=== PATIENT | female | born 1990 | race Caucasian/White ===

== ENCOUNTER → 2019-08-11 | Outpatient (CLI) | payer OTHER ==
--- NOTE | 2019-08-11 10:26 | US ---
EXAMINATION TYPE: US pelvic complete DATE OF EXAM: 08/11/2019 COMPARISON: US 04/19/2015 CLINICAL HISTORY: E28.2 POLYCYSTIC OVARIES. TECHNIQUE: . Transabdominal sonographic images of the pelvis were acquired. Date of LMP: 2 weeks ago EXAM MEASUREMENTS: Uterus: 7.1 x 3.1 x 3.2 cm Endometrial Stripe: 0.8 cm Right Ovary: 3.6 x 2.5 x 2.6 cm Left Ovary: 2.2 x 1.6 x 1.8 cm 1. Uterus: Anteverted wnl 2. Endometrium: wnl 3. Right Ovary: Follicles visualized, wnl 4. Left Ovary: Follicles visualized, wnl 5. Bilateral Adnexa: wnl 6. Posterior cul-de-sac: wnl IMPRESSION: Normal pelvic ultrasound
--- NOTE | 2019-08-11 10:27 | US ---
EXAMINATION TYPE: US abdomen complete DATE OF EXAM: 08/11/2019 COMPARISON: NONE CLINICAL HISTORY: E28.2 POLYCYSTIC OVARIES. EXAM MEASUREMENTS: Liver Length: 13.9 cm Gallbladder Wall: 0.1 cm CBD: 0.5 cm Spleen: 11.6 cm Right Kidney: 10.9 x 4.9 x 4.8 cm Left Kidney: 9.5 x 4.9 x 5.4 cm Pancreas: Obscured by bowel gas Liver: wnl Gallbladder: wnl Evidence for sonographic Thayer's sign: No CBD: wnl Spleen: wnl Right Kidney: No hydronephrosis or masses seen Left Kidney: No hydronephrosis or masses seen Upper IVC: wnl Abd Aorta: wnl The liver is homogenous. The intrahepatic portion of the IVC and proximal abdominal aorta are within normal limits. There is no evidence of cholelithiasis. Common bile duct is unremarkable. The visu alized portions of the pancreas are homogenous. The spleen is unremarkable. Kidneys are symmetric a nd free of hydronephrosis, there is no abnormal calcification, cortical medullary differentiation is maintained. No renal lesions are seen. IMPRESSION: Normal abdomen ultrasound
== END | disposition home or self-care (01) ==
LOC: RADUSMAIN 07:45
PROVIDERS: ATTEND Family Medicine
DX: E28.2 Polycystic ovarian syndrome (principal)
CPT/HCPCS: 76700; 76856

== ENCOUNTER 2020-04-27 | Emergency (ER) | payer OTHER ==
[2020-04-27 00:06] VITALS: RESP 20
[2020-04-27] MEDS ORDERED: SODIUM CHLORIDE 0.9% 1,000 ML IV STA (00:22)
[2020-04-27] MEDS ORDERED: METOCLOPRAMIDE 5 MG/ML 2 ML VIAL IVP STA (00:22)
[2020-04-27] MEDS ORDERED: ONDANSETRON 4 MG/2 ML VIAL IVP STA (00:22)
[2020-04-27] MEDS ORDERED: KETOROLAC 15 MG/ML 1 ML VIAL IVP STA (00:27)
--- NOTE | 2020-04-27 00:45 | ED ---
General Adult HPI - General Chief complaint: Headache Stated complaint: Migraine Time Seen by Provider: 04/27/20 00:08 Source: patient Mode of arrival: ambulatory Limitations: no limitations - History of Present Illness Initial comments: 30-year-old female with history of chronic migraines presents to the emergency department with complaints of headache that has persisted throughout the day despite taking all her prescribed medications. Reports discomfort is accompanied by nausea, as well as sensitivity to light and sound. States her current symptoms are similar in nature to her normal migraines but has been unable to get relief with home regimen. Also states she has symptoms of a UTI for which she has been seen by her primary care provider and is content to wait until her follow-up appointment on Wednesday for further evaluation and treatment of the symptoms. Patient denies any recent rash, fever, chills, cough, shortness of breath, chest pain, abdominal pain, vomiting, diarrhea, constipation, back pain, numbness, tingling, dizziness, weakness, hematuria, dysuria, visual changes, or any other complaints. - Related Data Home Medications Medication Instructions Recorded Confirmed Beclomethasone Dipropionate [Qvar 1 puff INHALATION BID 08/20/14 08/20/14 80 mcg/puff] Previous Rx's Medication Instructions Recorded Albuterol Nebulized [Ventolin 2.5 mg INHALATION Q4H PRN 10 Days 08/20/14 Nebulized] nebu Azithromycin [Zithromax Z-pack (6 0 mg PO DIRECTED #6 tab 08/20/14 tabs)] predniSONE [Deltasone] 20 mg PO DIRECTED #11 tab 08/20/14 Allergies Allergy/AdvReac Type Severity Reaction Status Date / Time peanut Allergy Anaphylaxis Verified 04/27/20 00:06 Review of Systems ROS Statement: Those systems with pertinent positive or pertinent negative responses have been documented in the HPI. ROS Other: All systems not noted in ROS Statement are negative. Past Medical History Past Medical History: Asthma Additional Past Medical History / Comment(s): migraines ,PCOS History of Any Multi-Drug Resistant Organisms: None Reported Additional Past Surgical History / Comment(s): nasal surgery Past Psychological History: Depression Smoking Status: Never smoker Past Alcohol Use History: Occasional Past Drug Use History: None Reported General Exam Limitations: no limitations (Well-developed, well-nourished female in no acute distress. Initial temperature 98.9F, pulse 98, respirations 20, blood pressure 125/79, pulse ox 100% on room air.) General appearance: alert, in no apparent distress Head exam: Present: atraumatic, normocephalic, normal inspection Eye exam: Present: normal appearance, PERRL, EOMI. Absent: scleral icterus, conjunctival injection, nystagmus, periorbital swelling Respiratory exam: Present: normal lung sounds bilaterally. Absent: respiratory distress, wheezes, rales, rhonchi, stridor Cardiovascular Exam: Present: regular rate, normal rhythm, normal heart sounds. Absent: systolic murmur, diastolic murmur, rubs, gallop, clicks GI/Abdominal exam: Present: soft, normal bowel sounds. Absent: distended, tenderness, guarding, rebound, rigid Neurological exam: Present: alert, oriented X3, CN II-XII intact Expanded Speech: Present: fluid speech Cranial nerves: EOM's Intact: Normal, Nystagmus: Normal Motor strength exam: RUE: 5, LUE: 5, RLE: 5, LLE: 5 Eye Response: (4) open spontaneously Motor Response: (6) obeys commands Verbal Response: (5) oriented Vadim Total: 15 Psychiatric exam: Present: normal affect Skin exam: Present: warm, dry, intact, normal color. Absent: rash Course Vital Signs 04/27/20 04/27/20 00:04 01:06 Temperature 98.9 F 98.8 F Pulse Rate 98 88 Respiratory 20 20 Rate Blood Pressure 125/79 120/74 O2 Sat by Pulse 100 98 Oximetry Medical Decision Making - Medical Decision Making 30-year-old female patient presents to the emergency department today for evaluation of migraine headache. Patient is have a history of migraines in her symptoms are consistent with her usual migraine pattern. She did take Topamax, Imitrex, and Excedrin today without relief. Physical examination is unremarkable. She is neurologically intact with no focal deficits. She was given IV fluids, IV medications. Upon reevaluation states she is feeling much better. She does feel comfortable being discharged home at this time. She is instructed to follow-up with her primary care physician for recheck in 1-2 days. Return parameters were discussed in detail. She verbalizes understanding and agrees with this plan. Disposition Clinical Impression: Migraine headache Disposition: HOME SELF-CARE Condition: Good Instructions (If sedation given, give patient instructions): Migraine Headache (ED) Additional Instructions: Rest. Increase fluids. Follow up with her primary care physician for recheck in 1-2 days. Return to the emergency department immediately for any new, wor sening, or concerning symptoms. Is patient prescribed a controlled substance at d/c from ED?: No Referrals: Ricardo Ruiz Jr, [Primary Care Provider] - 1-2 days Time of Disposition: 01:19
[2020-04-27 01:11] VITALS: BP 120/74; PULSE 88; TEMP 98.8
== END 2020-04-27 01:26 | disposition home or self-care (01) ==
LOC: EC
DX: G43.909 Migraine, unspecified, not intractable, without status migrainosus (principal); J45.909 Unspecified asthma, uncomplicated; Z79.51 Long term (current) use of inhaled steroids; Z91.010 Allergy to peanuts
CPT/HCPCS: 99283; 96374; 96375 ×2; 96361; J2765; J2405; J1885

== ENCOUNTER → 2020-08-21 | Outpatient (CLI) | payer OTHER ==
--- NOTE | 2020-08-21 16:05 | US ---
EXAMINATION TYPE: US transvaginal DATE OF EXAM: 08/21/2020 COMPARISON: NONE CLINICAL HISTORY: 30-year-old female E28.2 POS R10.32 LLQ pain. PCOS, left pelvic pain TECHNIQUE: Transvaginal (TV) Date of LMP: 08/10/20 FINDINGS: EXAM MEASUREMENTS: Uterus: 6.2 x 2.9 x 3.0 cm Endometrial Stripe: 0.2 cm Right Ovary: 3.3 x 2.3 x 3.0 cm for a volume of 12.2 mL Left Ovary: 2.9 x 2.0 x 2.3 cm for a volume of 6.8 mL. 1. Uterus: Anteverted and otherwise wnl 2. Endometrium: wnl 3. Right Ovary: dominant follicle = 2.0 x 2.1 x 2.1cm 4. Left Ovary: dominant follicle = 1.7 x 1.6 x 1.5cm 5. Bilateral Adnexa: appears wnl 6. Posterior cul-de-sac: wnl IMPRESSION: Ovarian volumes as above. There is a dominant follicle on either side measuring 2.1 cm on the right a nd 1.7 cm on the left. The overall morphology of the ovaries is not typical of polycystic ovaries. Cl inically correlate.
== END ==
LOC: RADUSWWP 13:34
PROVIDERS: ATTEND Family Medicine
DX: R10.2 Pelvic and perineal pain (principal)
CPT/HCPCS: 76830

== ENCOUNTER 2021-02-03 06:14 | Emergency (ER) | payer OTHER ==
[2021-02-03 06:21] VITALS: BP 141/94; PULSE 97; RESP 22; TEMP 98.2
[2021-02-03] MEDS ORDERED: FLUORESCEIN STRIPS 1 MG STRIP RIGHT EYE ONE (06:25)
[2021-02-03] MEDS ORDERED: PROPARACAINE 0.5% OPHTH DROPS 15 ML BTL RIGHT EYE STA (06:25)
--- NOTE | 2021-02-03 06:40 | ED ---
General Adult HPI - General Chief complaint: ENT Stated complaint: eye problem Time Seen by Provider: 02/03/21 06:18 Source: patient, RN notes reviewed Mode of arrival: ambulatory Limitations: no limitations - History of Present Illness Initial comments: This a 30-year-old female presents emergency Department chief complaint of right eye pain. Patient states that it woke her up states that worsened this morning. Patient states she has no visual changes from states he feels that there something her right eye. She denies any contacts lenses when she does wear glasses. Patient states she does not remember getting anything in her right eye. Patient states that is better when she closes and doesn't move it. - Related Data Home Medications Medication Instructions Recorded Confirmed Beclomethasone Dipropionate [Qvar 1 puff INHALATION BID 08/20/14 08/20/14 80 mcg/puff] Previous Rx's Medication Instructions Recorded Albuterol Nebulized [Ventolin 2.5 mg INHALATION Q4H PRN 10 Days 08/20/14 Nebulized] nebu Azithromycin [Zithromax Z-pack (6 0 mg PO DIRECTED #6 tab 08/20/14 tabs)] predniSONE [Deltasone] 20 mg PO DIRECTED #11 tab 08/20/14 Allergies Allergy/AdvReac Type Severity Reaction Status Date / Time peanut Allergy Anaphylaxis Verified 02/03/21 06:21 Review of Systems ROS Statement: Those systems with pertinent positive or pertinent negative responses have been documented in the HPI. ROS Other: All systems not noted in ROS Statement are negative. Past Medical History Past Medical History: Asthma Additional Past Medical History / Comment(s): migraines ,PCOS History of Any Multi-Drug Resistant Organisms: None Reported Additional Past Surgical History / Comment(s): nasal surgery Past Psychological History: Anxiety, Depression Smoking Status: Former smoker Past Alcohol Use History: Occasional Past Drug Use History: None Reported General Exam Limitations: no limitations General appearance: alert, in no apparent distress Head exam: Present: atraumatic, normocephalic, normal inspection Eye exam: Present: PERRL, EOMI, conjunctival injection (Mild right), other (Patient relief with proparacaine eyedrops. There is uptake in a stopped position with fluorescein Wood's lamp. No foreign body noted.). Absent: normal appearance, scleral icterus, periorbital swelling ENT exam: Present: normal exam, normal oropharynx, mucous membranes moist, TM's normal bilaterally Neck exam: Present: normal inspection, full ROM. Absent: tenderness, meningismus, lymphadenopathy Respiratory exam: Present: normal lung sounds bilaterally. Absent: respiratory distress, wheezes, rales, rhonchi, stridor Cardiovascular Exam: Present: regular rate, normal rhythm, normal heart sounds. Absent: systolic murmur, diastolic murmur, rubs, gallop, clicks Course Vital Signs 02/03/21 06:16 Temperature 98.2 F Pulse Rate 97 Respiratory 22 Rate Blood Pressure 141/94 O2 Sat by Pulse 99 Oximetry Medical Decision Making - Medical Decision Making Patient had a noted corneal abrasion no foreign body. Her tetanus is up-to-date. Patient will be discharged with Tobrex eyedrops follow-up with ophthalmology. Return parameters were discussed. Patient received plan. Disposition Clinical Impression: Right corneal abrasion Disposition: HOME SELF-CARE Condition: Stable Instructions (If sedation given, give patient instructions): Corneal Abrasion (ED) Additional Instructions: Please return to the Emergency Department if symptoms worsen or any other michael rns. Is patient prescribed a controlled substance at d/c from ED?: No Referrals: Ricardo Ruiz Jr, [Primary Care Provider] - 1-2 days Time of Disposition: 06:40
[2021-02-03] MEDS ORDERED: TOBRAMYCIN 0.3% OPHTH DROPS 5 ML BTL RIGHT EYE STA (06:51)
== END 2021-02-03 06:53 | disposition home or self-care (01) ==
LOC: EC 06:14
DX: S05.01XA Injury of conjunctiva and corneal abrasion without foreign body, right eye, initial encounter (principal); J45.909 Unspecified asthma, uncomplicated; F41.9 Anxiety disorder, unspecified; F32.9 Major depressive disorder, single episode, unspecified; Z87.891 Personal history of nicotine dependence; Z91.010 Allergy to peanuts; X58.XXXA Exposure to other specified factors, initial encounter
CPT/HCPCS: 99283

== ENCOUNTER → 2022-01-20 | Outpatient (CLI) | payer OTHER ==
--- NOTE | 2022-01-20 10:25 | US ---
EXAMINATION TYPE: US pelvic complete DATE OF EXAM: 01/20/2022 COMPARISON: US CLINICAL HISTORY: R19.00 INTRA-ABD AND PELVIC SWELLING, MASS AND LUM. Pt states physician felt swelli ng or fullness midline abdomen TECHNIQUE: Transabdominal (TA). Transabdominal sonographic images of the pelvis were acquired. Date of LMP: 1 week ago EXAM MEASUREMENTS: Uterus: 6.6 x 2.9 x 4.1 cm Endometrial Stripe: 0.5 cm Right Ovary: 2.9 x 2.4 x 2.1 cm Left Ovary: 2.7 x 2.0 x 2.5 cm 1. Uterus: Anteverted wnl 2. Endometrium: wnl 3. Right Ovary: wnl 4. Left Ovary: wnl 5. Bilateral Adnexa: wnl 6. Posterior cul-de-sac: wnl IMPRESSION: 1. Normal pelvic ultrasound
--- NOTE | 2022-01-20 10:27 | US ---
EXAMINATION TYPE: US abdomen complete DATE OF EXAM: 01/20/2022 COMPARISON: US CLINICAL HISTORY: R19.00 INTRA-ABD AND PELVIC SWELLING, MASS AND LUM. Pt states physician felt swelli ng or fullness midline abdomen TECHNIQUE: Multiple sonographic images of the abdomen are obtained. 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 There is mild prominence of the common bile duct. Normal up to 0.5 cm. 2. Ultrasound abdomen as visualized otherwise appears unremarkable.
== END | disposition home or self-care (01) ==
LOC: RADUSWWP 07:21
PROVIDERS: ATTEND Family Medicine
DX: R19.09 Other intra-abdominal and pelvic swelling, mass and lump (principal)
CPT/HCPCS: 76700; 76856

== ENCOUNTER → 2022-02-05 | Outpatient (CLI) | payer OTHER ==
--- NOTE | 2022-02-05 09:53 | XR ---
EXAMINATION TYPE: XR shoulder complete RT DATE OF EXAM: 02/05/2022 COMPARISON: NONE HISTORY: Pain TECHNIQUE: Three views are submitted. FINDINGS: The osseous structures are intact. There is no acute fracture or dislocation. The AC joint is maint ained. IMPRESSION: 1. No acute process.
== END | disposition home or self-care (01) ==
LOC: RADXRMAIN 09:36
PROVIDERS: ATTEND Family Medicine
DX: M25.511 Pain in right shoulder (principal)

== ENCOUNTER 2022-04-07 20:07 | Emergency (ER) | payer OTHER ==
[2022-04-07] MEDS ORDERED: SODIUM CHLORIDE 0.9% 1,000 ML IV STA (21:41)
[2022-04-07] MEDS ORDERED: diphenhydrAMINE 50 MG/ML 1 ML VIAL IVP STA (21:41)
[2022-04-07] MEDS ORDERED: PROCHLORPERAZINE INJ 10 MG/2 ML VIAL IVP STA (21:41)
[2022-04-07] MEDS ORDERED: KETOROLAC 15 MG/ML 1 ML VIAL IVP STA (21:41)
--- NOTE | 2022-04-07 21:50 | ED ---
General Adult HPI - General Chief complaint: Headache Stated complaint: Migraine Time Seen by Provider: 04/07/22 21:11 Source: patient, RN notes reviewed, old records reviewed Mode of arrival: ambulatory Limitations: no limitations - History of Present Illness Initial comments: Patient is a 32-year-old female with past medical history remarkable for emil sonia headaches who presents emergency Department complaining of a migraine headache. Patient states it started at approximately noon today. It is a typical migraine headache for her, consisting of a generalized squeezing of her head. Does occasionally get auras but did not happen today. Unknown trigger today. Took her typical migraine medications at home without any improvement of her symptoms. She states she occasionally does require migraine cocktails which is why she is here tonight for evaluation. Denies any other acute complaints at this time except for being diagnosed with a urinary infection 2 days ago which is improved on azithromycin. Denies any weakness, numbness. Denies any shortness of breath, does endorse nasal congestion. Denies any cough. Denies sore throat. Denies abdominal pain, nausea, vomiting. Denies any diarrhea. Has no chest pain. Presents for further evaluation of this time. His no visual complaints. States her headache is sensitive to light. - Related Data Home Medications Medication Instructions Recorded Confirmed Beclomethasone Dipropionate [Qvar 1 puff INHALATION BID 08/20/14 08/20/14 80 mcg/puff] Previous Rx's Medication Instructions Recorded Albuterol Nebulized [Ventolin 2.5 mg INHALATION Q4H PRN 10 Days 08/20/14 Nebulized] nebu Azithromycin [Zithromax Z-pack (6 0 mg PO DIRECTED #6 tab 08/20/14 tabs)] predniSONE [Deltasone] 20 mg PO DIRECTED #11 tab 08/20/14 Tobramycin [Tobrex 0.3% Ophth Soln] 1 drop RIGHT EYE Q4HR #5 ml 02/03/21 Allergies Allergy/AdvReac Type Severity Reaction Status Date / Time peanut Allergy Anaphylaxis Verified 04/07/22 20:11 Review of Systems ROS Statement: Those systems with pertinent positive or pertinent negative responses have been documented in the HPI. Review of Systems: CONST: Denies fever EYES: Denies blurry vision ENT: Denies nasal congestion C/V: Denies Chest pain RESP: Denies shortness of breath GI: Denies abdominal pain : Denies dysuria SKIN: Denies rash. MSK: Denies joint pain. NEURO: Endorses headache ROS Other: All systems not noted in ROS Statement are negative. Past Medical History Past Medical History: Asthma Additional Past Medical History / Comment(s): migraines ,PCOS History of Any Multi-Drug Resistant Organisms: None Reported Additional Past Surgical History / Comment(s): nasal surgery Past Psychological History: Anxiety, Depression Smoking Status: Former smoker Past Alcohol Use History: Occasional Past Drug Use History: None Reported General Exam - General Exam Comments Initial Comments: General: Appears in no acute distress. HEAD: Normal with no signs of head trauma. EYES: PERRLA, EOMI, conjunctiva normal, no discharge. Pupils 3 mm and equal b ilaterally. ENT: Hearing grossly intact, normal oropharynx. Bilateral tympanic membranes are within normal limits. RESPIRATORY: Clear breath sounds bilaterally. No wheezes, rales, or rhonchi. C/V: Regular rate and rhythm. S1 and S2 auscultated, no edema, peripheral pulses 2+ and intact throughout ABD: Abd is soft, nontender, nondistended EXT: Normal range of motion, no obvious deformity SKIN: No rashes or lesions observed on exposed skin. NEURO: Alert and oriented x 4. Cranial nerves II-XII intact. No focal sensory or strength deficits. GCS of 15. NIH is 0. Limitations: no limitations Course Vital Signs 04/07/22 04/07/22 20:10 23:38 Temperature 97.6 F 97.8 F Pulse Rate 108 H 80 Respiratory 20 17 Rate Blood Pressure 130/83 118/76 O2 Sat by Pulse 100 98 Oximetry Medical Decision Making - Medical Decision Making Based on the patient's presentation and physical exam, I'm concerned for a migraine headache. She is a typical headache for her. She is also having a breast her symptoms and I offered her Covid test which she accepted. She will receive a migraine cocktail subsequently reevaluated. Vital signs within acceptable limits. She was in agreement this plan. This is not the worst headache of her life. Neurological exam is within normal limits. Following migraine cocktail, patient's headache is resolved. Patient did test positive for Covid. Apparently, patient is been having some upper respiratory symptoms for more than 5 days. Has never required antipyretic medications. I did discuss that since she was started on azithromycin, she finished the course and this can be her 5 day period of Isolation. She was in agreement this plan. We discussed isolation. Discussed were no mass. Discussed obtain pulse ox monitor oxygenation. Vital signs within normal limits. Patient will be discharged home at this time in good condition. Vital signs remain within acceptable limits. No respiratory distress. No Hypoxia. I instructed the patient to follow up with their PCP in the next 1-3 days. I explained that the patient should return to the emergency department if they experience any worsening symptoms. Strict return precautions were discussed with the patient. The patient expressed understanding of these instructions. I answered all questions that the patient had. The patient was discharged home in good condition with their prescriptions and follow up information. - Lab Data Lab Results 04/07/22 Range/Units 22:12 Coronavirus (PCR) Detected A (Not Detectd) Disposition Clinical Impression: Migraine, COVID-19 Disposition: HOME SELF-CARE Condition: Good Instructions (If sedation given, give patient instructions): Acute Headache (ED), COVID-19 (Coronavirus Disease 2019) (ED) Is patient prescribed a controlled substance at d/c from ED?: No Referrals: Fernando Butts DO [Primary Care Provider] - 1-2 days Time of Disposition: 23:15
[2022-04-07 23:40] VITALS: BP 118/76; PULSE 80; RESP 17; TEMP 97.8
== END 2022-04-07 23:38 | disposition home or self-care (01) ==
LOC: EC 20:07
DX: U07.1 COVID-19 (principal); G43.909 Migraine, unspecified, not intractable, without status migrainosus; Z91.010 Allergy to peanuts; J45.909 Unspecified asthma, uncomplicated; Z87.891 Personal history of nicotine dependence; Z79.51 Long term (current) use of inhaled steroids
CPT/HCPCS: 96374 ×2; 96375 ×2; 96361 ×2; 99283 ×2; 87635; J1200; J0780; J1885

== ENCOUNTER → 2022-07-15 | Outpatient (CLI) | payer OTHER ==
--- NOTE | 2022-07-15 17:01 | CT ---
EXAMINATION TYPE: CT abdomen w con DATE OF EXAM: 07/15/2022 COMPARISON: None INDICATION: Right upper quadrant abdominal pain. DLP: 804.5 mGycm, Automated exposure control for dose reduction was used. CONTRAST: 70ml mL of Isovue 300. Study performed with Oral Contrast TECHNIQUE: Axial images were obtained from above the diaphragm to the pubic rami in the axial plane a t 5 mm thick sections. Reconstructed images are reviewed on the computer in the coronal plane. FINDINGS: Limited CT sections are obtained the lung bases. The lung bases are clear. CT ABDOMEN: Liver: Normal Spleen: Normal Pancreas: Normal Adrenal glands: The adrenal glands are normal. Gallbladder: Normal Kidneys: No masses are evident. No hydronephrosis is present. No cysts are present. Delayed images were obtained through the kidneys, which remain unremarkable. Aorta: Normal Inferior vena cava: Normal. Loops of bowel within the abdomen and pelvis are normal. There are loops of bowel which are incom pletely distended or lack oral contrast limiting their evaluation. Appendix: Normal as visualized. IMPRESSIONS: 1. Normal abdomen CT. no suspicious abnormality, right upper quadrant pain
== END | disposition home or self-care (01) ==
LOC: RADCTMAIN 08:55
PROVIDERS: ATTEND Family Medicine
DX: R10.11 Right upper quadrant pain (principal)
CPT/HCPCS: 74160; Q9967